=== PATIENT | male | born 1960 | race Caucasian/White ===

== ENCOUNTER 2016-11-25 11:05 | Inpatient (IN) | payer BC ==
--- NOTE | ~2016-11-25 | DS ---
Unit #: [id number] #: [id number] Patient: EVERETT LESLIE [id number] [address] [address] [id number] I MR#: [id number] NAME: EVERETT LESLIE ROOM: 549 Age: 55 Sex: M Admission Date: 11/25/2016 : 1960 Discharge Date: 11/27/2016 Attending Physician: Angelic Williamson M.D. Primary Care Physician: Justin Anaya M.D. DISCHARGE SUMMARY ADDENDUM The patient was not discharged on November 26 because nephrology wanted to monitor one more day of his sodium. Currently, his sodium is 131. The patient was given 1200 mL fluid restriction and 3 g of salt during the hospitalization course. The patient will be discharged on sodium 1 g three times daily and fluid restriction of 1200 mL at home also. Discussed with nephrology. Okay to discharge patient home. Hyponatremia is mostly secondary to alcohol. Also, could be from SIADH. Follow with family physician in one week tomcharity. BMP in one week time. Follow with PCP with results. Dictated by... Danitza Case/ayde TD: 11/27/2016 15:20 JOB #: [id number] DISCHARGE SUMMARY Page 1 of 1 X Angelic Williamson MD X DISCHARGE SUMMARY
--- NOTE | ~2016-11-25 | DS ---
Unit #: [id number] #: [id number] Patient: EVERETT LESLIE [id number] [address] [address] [id number] I MR#: [id number] NAME: EVERETT LESLIE ROOM: 549 Age: 55 Sex: M Admission Date: 11/25/2016 : 1960 Discharge Date: Attending Physician: Margarita Mosqueda M.D. Primary Care Physician: Justin Anaya M.D. DISCHARGE SUMMARY DISCHARGE DIAGNOSES 1. Hypernatremia secondary to alcohol abuse. 2. Alcohol dependence with mild delirium tremens. 3. Generalized weakness. 4. Transaminitis from alcohol. 5. Diabetes mellitus type 2, uncontrolled. 6. Hypertension, uncontrolled. 7. Hyperlipidemia. 8. History of pancreatitis. 9. Gastroesophageal reflux disease. 10. Smoking. CONSULTATION Dr. Clarke. PROCEDURES None. LAB DATA Glucose 218, TSH 3.66, creatinine 0.7, sodium 127, WBC 6.5, hemoglobin 14.6, platelets 219. Chest x-ray negative. ALLERGIES None. DISCHARGE MEDICATIONS 1. Neurontin 600 three times daily. 2. Metformin 500 p.o. b.i.d. 3. Librium 25 mg p.o. daily. 4. Norvasc 5 mg p.o. b.i.d. 5. Coreg 6.25 p.o. b.i.d. 6. Lipitor 10 daily. 7. NovoLog 15 units in the morning, 10 units in the afternoon and 15 units at bedtime. 8. Levemir 60 units at bedtime. 9. Fiber, one tablet daily. 10. Folic acid 1 mg daily. 11. Thiamine 100 daily. 12. Pentoxifylline 400 p.o. three times daily. HOSPITAL COURSE 55-year-old admitted because of low sodium. Unit #: [id number] #: [id number] Patient: EVERETT LESLIE Hyponatremia secondary to alcohol abuse: The patient was seen by Dr. Clarke. Currently, sodium is 127. If Dr. Clarke is okay, patient will be discharged. Recommendations as per him. Alcohol dependency with mild delirium tremens: Patient received alcohol withdrawal protocol with Librium. I gave prescription for Librium. Diabetes mellitus type 2, uncontrolled: Continue with Levemir. Hypertension, uncontrolled: I added Norvasc 5 mg XR to make it 5 mg p.o. b.i.d. The patient will be discharged home if okay with Dr. Clarke. Follow with primary physician in one week time. Dictated by... Danitza Case/ayde TD: 11/26/2016 11:22 JOB #: [id number] DISCHARGE SUMMARY Page 1 of 1 X Angelic Williamson MD X DISCHARGE SUMMARY
--- NOTE | ~2016-11-25 | CR63 ---
[facility] A Service of [facility] RADIOLOGY TEXT RESULTS PATIENT: EVERETT LESLIE LOCATION: [facility] [id number] : [birth year] UNIT #: [id number] AGE: [address]: Margarita Mosqueda MD SEX: M ORDER DR: [id number] [facility] [address] [facility]. [place], [place] [address] [id number] I MR#: [id number] Acc #: [id number] NAME: EVERETT LESLIE : 1960 SEX: M STUDY DATE/TIME: 11/25/2016 16:46 UNIT: [facility] ROOM: [facility] STUDY DESCRIPTION: CR Chest 2 View Attending Physician: Margarita Mosqueda M.D. Ordering Physician: Margarita Mosqueda M.D. Primary Care Physician: Justin Anaya M.D. MEDICAL IMAGING REPORT This report is preliminary unless electronic signature is present EXAM PA and lateral chest HISTORY Cough for 1 week. FINDINGS 2 views of the chest demonstrate the cardiac size and pulmonary vascularity are normal. No infiltrates or effusions. Small calcified hilar nodes. IMPRESSION No acute findings. No active disease in the lungs. Dictated by... Sukhdeep Deras M.D. THIS IS AN ELECTRONICALLY VERIFIED REPORT Sukhdeep Deras M.D. at 11/25/2016 11:11 PM DFL/pcl TD: 11/25/2016 21:53 JOB #: [id number] MEDICAL IMAGING REPORT Page 1 of 1 COPY
--- NOTE | ~2016-11-25 | CO ---
Unit #: [id number] #: [id number] Patient: EVERETT NUÑZE [id number] [address] [address] [id number] I MR#: [id number] NAME: EVERETT NUÑEZ ROOM: 549 Age: 55 Sex: M Admission Date: 11/25/2016 : 1960 Attending Physician: Angelic Williamson M.D. Primary Care Physician: Justin Anaya M.D. Consultation Date: 11/25/2016 CONSULTATION REPORT REASON FOR CONSULTATION Low sodium. Thank you very much for asking me to see this patient in consultation. HISTORY OF PRESENT ILLNESS Mr. Nuñez is a 55-year-old male with a history of EtOH abuse, history of diabetes mellitus type 2 for about 7 to 8 years, history of hypertension, who presented to the hospital after feeling weak and tired. He had blood work done in his primary office on 11/19/2016 showed sodium of 124. He was instructed to go the emergency room which he did. He states he has been feeling weak for several weeks or more. He continues to drink a lot of alcohol. He tells me at least 12 beers per day; although, he says he is eating some. He denies any chest pain or shortness of breath. He denies any nausea, vomiting, or diarrhea. He denies any other major problems, just severe weakness, fatigue, and just stressed all the time. He was noted in the emergency room here to have a sodium of 120 at 11:25 a.m. PAST MEDICAL HISTORY History of ETOH abuse, history of diabetes mellitus type 2, history of hypertension, hyperlipidemia, history of pancreatitis in the past, history of gastroesophageal reflux disease, history of status post left hip in 2007, status post cholecystectomy, status post appendectomy. SOCIAL HISTORY No smoking. Positive for snuff. Positive for ETOH. ALLERGIES No known drug allergies. MEDICATIONS At home include gabapentin, Trental, Glucophage, Norvasc, Lipitor, Coreg, insulin. REVIEW OF SYSTEMS As mentioned in the HPI. Denies any severe headaches, dizziness, visual problems, sinus problems. No cough or hemoptysis. No neck pain or neck stiffness. No chest pain, chest tightness, or palpitations. No shortness of breath. Again, no abdominal pain. No urinary symptoms. No significant swelling. No recent seizures or strokes, or skin rashes. FAMILY HISTORY Noncontributory. Unit #: [id number] #: [id number] Patient: EVERETT NUÑEZ PHYSICAL EXAMINATION VITAL SIGNS: Temperature is 97.9, pulse 79, blood pressure 160s to 170s over 90 to 100. HEENT: Normocephalic and atraumatic. Pupils are equal, round, and reactive to light. Extraocular muscles are intact. Hearing appears normal. Mouth clear. No erythema. No exudate. NECK: Supple. No JVD. CARDIAC: Regular rhythm without a rub. No S3 or S4. LUNGS: Fairly clear bilaterally. No wheezes, rhonchi, or rales. ABDOMEN: Bowel sounds positive. Nontender, soft. EXTREMITIES: He has some very trace lower extremity swelling. His pulses are intact in lower extremities. JOINTS: No joint pain or joint swelling. SKIN: His face is red. He has otherwise no acute rashes. NEUROLOGIC: Appears to be intact. Motor sensory grossly. : Deferred. DIAGNOSTIC STUDIES LABORATORY RESULTS: Showed a sodium of 120, potassium 4.1, chloride is 86, bicarb is 22, BUN and creatinine of 7 and 0.5 with a glucose of 152, calcium is 8.5, albumin is 4.1, AST is 47, ALT is 44, bilirubin is normal. CPK is 223. Hemoglobin 13.7, white count 8100, platelets 224,000. UA shows specific gravity of 1.005. No protein, no rbc's, no wbc's, no ketones. Repeat sodium which just came back from 4:00 p.m. showed a sodium up to 128, potassium 3.9, magnesium is 1.9. ASSESSMENT AND PLAN 1. Hyponatremia. This is a gentleman with low sodium probably related to alcohol use; although, with albumin of 4.1, I doubt if he has beer potomania, may just be due to increased fluid intake versus other. We will check urine sodium, urine osmolarity. We will check a TSH and a cortisol level in the morning. Due to sodium went from 120 to 128 in a little over 5 hours, I am going to go ahead and put him on D5W at 75 mL/h, start as soon as possible. Recheck a BMP at 9:00 p.m. and determine what fluid rate. We will follow his I's and O's. Depending on what his urine shows and his sodium improves, depending on what further workup and treatment. 2. ETOH abuse. 3. History of pancreatitis. We will check amylase and lipase. 4. History of diabetes. 5. History of hypertension. Dictated by..Danitza Grove/jun TD: 11/26/2016 12:36 JOB #: [id number] Unit #: [id number] #: [id number] Patient: EVERETT NUÑEZ CONSULTATION REPORT Page 1 of 1 X Rajinder Clarke MD X CONSULTATION REPORT
--- NOTE | ~2016-11-25 | HP ---
Unit #: [id number] #: [id number] Patient: EVERETT LESLIE [id number] [address] [address] [id number] MR#: [id number] NAME: EVERETT LESLIE ROOM: Age: 55 Sex: M Admission Date: 11/25/2016 : 1960 Attending Physician: Karlos Holman M.D. Primary Care Physician: Justin Anaya M.D. HISTORY AND PHYSICAL CHIEF COMPLAINT Abnormal labs. HISTORY OF PRESENT ILLNESS The patient is a 55-year-old male with a past medical history of alcohol abuse, diabetes, hypertension, hyperlipidemia, pancreatitis and gastroesophageal reflux disease. The patient presented to the emergency department for evaluation of the above. The patient states that he has been feeling generally weak for about the past week. He apparently saw Dr. De La Cruz last week regarding diabetes. Labs were drawn and he was told that his sodium was low. Repeat labs were drawn on 11/23/2016 according to the patient and he was called and told to go to the emergency department regarding low sodium. He states that last night he got an [id number] "salt tablet." He took a dose last night and a dose this morning. He states that he has been feeling generally weak. He has not had any falls. He has had frequent urination. He denies any fever. No cough or cold symptoms. No chest pain. No trouble breathing. No vomiting or diarrhea. Of note, he is a daily drinker. He drinks about a 12-pack daily. His last drink was three days ago. In the emergency department sodium is 120. He was given one liter of normal saline. He is being admitted to [facility] for evaluation and further treatment. PAST MEDICAL HISTORY 1. Admission to [facility] 03/03/2008 through 03/06/2008 for left total hip arthroplasty. 2. Diabetes, followed by Dr. De La Cruz. 3. Hypertension. 4. Hyperlipidemia. 5. Pancreatitis. 6. Gastroesophageal reflux disease. PAST SURGICAL HISTORY 1. Cholecystectomy. 2. Appendectomy. 3. Left hip replacement. 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 He is a smoker. He is a daily drinker. He drinks a 12-pack daily. He states that his last drink was three to four days ago. Unit #: [id number] #: [id number] Patient: EVERETT LESLIE FAMILY HISTORY Notable for his dad having diabetes. ALLERGIES No known drug allergies. HOME MEDICATIONS 1. Gabapentin 600 mg t.i.d. 2. Pentoxifylline 400 mg t.i.d. 3. Glucophage 500 mg b.i.d. 4. Norvasc 5 mg daily. 5. Lipitor 10 mg daily. 6. Coreg 6.25 mg b.i.d. 7. NovoLog 15 units in the morning, 10 units in the afternoon, 15 units in the p.m. 8. Levemir 60 units at bedtime. 9. Methylcellulose daily. REVIEW OF SYSTEMS A complete review of systems is negative except as indicated in the history of present illness. The patient says his blood sugars have been in the 150 to 200 range. The patient denies ever being told that his sodium was low in the past. PHYSICAL EXAMINATION GENERAL: The patient is a male who is awake and alert, in no acute distress. VITALS: Temperature 97.5, pulse 79, respiratory rate 16, blood pressure 174/90, oxygen saturation 97% on room air. HEENT: The head is atraumatic. Mucous membranes are moist. NECK: Supple. Trachea midline. LUNGS: Clear to auscultation bilaterally with no increased work of breathing. HEART: Regular rate and rhythm. ABDOMEN: Soft and nontender with bowel sounds present in all four quadrants. EXTREMITIES: Nontender with no pedal edema. NEUROLOGIC: The patient is awake and alert. He follows commands. PSYCHIATRIC: Mood and affect are normal. The patient is cooperative. SKIN: Skin of examined areas is warm and dry. DIAGNOSTIC STUDIES LABORATORY: CBC notable for MCV of 81.1. Urinalysis essentially normal. CMP notable for sodium of 120, chloride 86, glucose 152, BUN 7, creatinine 0.5, AST 47, ALT 44. CARDIOVASCULAR: EKG shows normal sinus rhythm with a rate of 86 beats per minute. ASSESSMENT The patient is a 55-year-old male with 1. General weakness. 2. Hyponatremia. The patient's sodium has previously been normal, although comparison is from 2007. I suspect that this is related to beer proteinemia as the patient drinks a 12-pack daily. 3. Transaminitis. Likely secondary to alcohol abuse. 4. Alcohol abuse with last drink three days ago. 5. Diabetes. Unit #: [id number] #: [id number] Patient: EVERETT LESLIE 6. Hypertension. 7. Hyperlipidemia. 8. History of pancreatitis. 9. Gastroesophageal reflux disease. 10. Tobacco abuse. PLAN 1. Admit to intermediate level. 2. Healthy heart, consistent carb diet if passes bedside swallow. 3. Two liter fluid restriction. 4. Fall precautions. 5. Physical therapy and occupational therapy to evaluate and treat. 6. Urine sodium and osmolality. 7. Serum osmolality. 8. Q.4 h. BMP. 9. Consult Dr. Ornelas regarding hyponatremia. 10. Chest x-ray for further evaluation of hyponatremia. 11. Thiamine, multivitamin, folic acid daily with first dose now. 12. Librium 25 mg p.o. q.6 h. with first dose now. 13. CIWA scoring with p.r.n. Ativan. 14. manager mba, social work consult regarding alcohol abuse. 15. Check urinalysis with culture and sensitivity. 16. Hemoglobin A1c. 17. Low-dose sliding scale with Accu-Cheks. 18. Serial cardiac enzymes. 19. EKG if not done. 20. Check magnesium level. 21. Repeat labs in the morning. 22. SCDs for DVT prophylaxis. 23. Additional workup and consultants based on the above. Dictated by Margarita Mosqueda M.D. Mario TD: 11/25/2016 15:39 JOB #: [id number] HISTORY AND PHYSICAL Page 1 of 1 X Margarita Mosqueda MD HISTORY AND PHYSICAL
--- NOTE | ~2016-11-25 | EKG ---
PATIENT: EVERETT LESLIE UNIT #: [id number] Ventricular Rate: 88 BPM Atrial Rate: 88 BPM P-R Interval: 168 ms QRS Duration: 120 ms Q-T Interval: 384 ms QTC Calculation(Bezet): 464 ms P Franklin: 75 degrees Calculated R Franklin: -58 degrees Calculated T Franklin: 48 degrees Diagnosis Line: Normal sinus rhythm Diagnosis Line: Left anterior fascicular block Diagnosis Line: Inferior infarct , age undetermined Diagnosis Line: Abnormal ECG Diagnosis Line: No previous ECGs available Diagnosis Line: Confirmed by BRANDON ILSA MD ([id number]) on 11/27/2016 Diagnosis Line: 4:29:31 PM INTERPRETING MD: SLOAN ALFRED
[~2016-11-25 11:05] MED LIST: COUMADIN PO; LOPRESSOR PO; LORTAB 10/500 T1 TAB PO; NORCO 5/325 TAB1 TAB PO; PREVACID PO; VICODIN 5/500 T1 TAB PO; ZOCOR PO
[2016-11-25 11:43] LABS: BASOPHIL# 0.1 X10e3 (0-0.3); BASOPHIL% 0.8 % (0-2.5); EOSINOPHIL# 1.3 X10e3 (0-0.7); EOSINOPHIL% 15.7 % (0.0-7.0); HEMATOCRIT 43.2 % (38.0-50.0); HEMOGLOBIN 13.7 gm/dL (13.0-16.0); LYMPHOCYTE# 1.9 X10e3 (1.0-3.5); LYMPHOCYTE% 23.1 % (17.0-45.0); MEAN CELL VOLUME 81.1 FL (83-96); MEAN CORPUSCULAR HEMOGLOBIN 25.8 PG (28-34); MEAN CORPUSCULAR HGB CONC 31.8 g/dL (30-36); MEAN PLATELET VOLUME 7.3 FL (6.5-11.5); MONOCYTE# 0.8 X10e3 (0-1.0); MONOCYTE% 10.5 % (3.0-12.0); NEUTROPHIL% 49.9 % (40-75); PLATELET COUNT 224 X10e3 (140-420); RED BLOOD COUNT 5.33 X10e (3.90-5.60); RED CELL DISTRIBUTION WIDTH 14.5 % (11.0-15.5); WHITE BLOOD COUNT 8.1 X10e3 (4.0-10.5)
[2016-11-25 11:49] LABS: DIFF IND NO
[2016-11-25 11:49] LABS: URINE SOURCE CLEAN CATCH
[2016-11-25 11:56] LABS: URINE APPEARANCE CLEAR; URINE BILIRUBIN NEG (NEG); URINE BLOOD NEG (NEG); URINE COLOR YELLOW; URINE GLUCOSE NEG (NEG); URINE KETONE NEG (NEG); URINE LEUKOCYTE ESTERASE NEG (NEG); URINE NITRATE NEG (NEG); URINE PH 5.5 (5-8); URINE PROTEIN NEG (NEG); URINE SPECIFIC GRAVITY 1.005 (1.003-1.035); URINE UROBILINOGEN 0.2 MG/DL (NEG)
[2016-11-25 12:03] LABS: CULTURE INDICATED? NO
[2016-11-25 12:45] LABS: ALBUMIN SERUM 4.1 g/dL (3.5-5.0); BILIRUBIN, DIRECT 0.1 mg/dL (0.0-0.2); BILIRUBIN,INDIRECT 0.6 mg/dL (0.0-0.9); BILIRUBIN,TOTAL 0.7 mg/dL (0.2-2.0); CALCIUM SERUM 8.5 mg/dL (8.4-10.2); CREATININE SERUM 0.5 mg/dL (0.6-1.4); POTASSIUM 4.1 mmol/L (3.5-5.1); PROTEIN TOTAL SERUM 6.9 g/dL (6.0-8.3)
[2016-11-25] MEDS ORDERED: PATIENT'S PHARMACY (13:57)
[2016-11-25] MEDS ORDERED: GABAPENTIN600 MG PO (13:58)
[2016-11-25] MEDS ORDERED: PENTOXIFYLLINE PO (14:01)
[2016-11-25] MEDS ORDERED: NORVASC PO (14:01)
[2016-11-25] MEDS ORDERED: METFORMIN PO (14:01)
[2016-11-25] MEDS ORDERED: LIPITOR PO (14:02)
[2016-11-25] MEDS ORDERED: COREG6.25 MG PO (14:02)
[2016-11-25] MEDS ORDERED: LEVEMIR FL100 UNIT/1 SUBQ (14:03)
[2016-11-25] MEDS ORDERED: NOVOLOG FL100 UNIT/1 (14:03)
[2016-11-25] MEDS ORDERED: FIBER500 MG PO (14:04)
[2016-11-25 16:25] LABS: BASOPHIL# 0.1 X10e3 (0-0.3); BASOPHIL% 0.7 % (0-2.5); EOSINOPHIL# 1.2 X10e3 (0-0.7); EOSINOPHIL% 16.7 % (0.0-7.0); HEMATOCRIT 44.9 % (38.0-50.0); HEMOGLOBIN 14.2 gm/dL (13.0-16.0); LYMPHOCYTE# 1.6 X10e3 (1.0-3.5); LYMPHOCYTE% 22.9 % (17.0-45.0); MEAN CELL VOLUME 80.8 FL (83-96); MEAN CORPUSCULAR HEMOGLOBIN 25.7 PG (28-34); MEAN CORPUSCULAR HGB CONC 31.7 g/dL (30-36); MEAN PLATELET VOLUME 7.3 FL (6.5-11.5); MONOCYTE# 0.5 X10e3 (0-1.0); MONOCYTE% 7.9 % (3.0-12.0); NEUTROPHIL# 3.6 X10e3 (1.5-7.1); NEUTROPHIL% 51.8 % (40-75); PLATELET COUNT 222 X10e3 (140-420); RED BLOOD COUNT 5.55 X10e (3.90-5.60); RED CELL DISTRIBUTION WIDTH 14.8 % (11.0-15.5); WHITE BLOOD COUNT 6.9 X10e3 (4.0-10.5)
[2016-11-25 16:46] LABS: DIFF IND NO
[2016-11-25 16:57] LABS: ALBUMIN SERUM 4.1 g/dL (3.5-5.0); BILIRUBIN,TOTAL 0.7 mg/dL (0.2-2.0); CALCIUM SERUM 8.4 mg/dL (8.4-10.2); CREATININE SERUM 0.6 mg/dL (0.6-1.4); GLOM FILT RATE Estimated 113.2 mL/min (>60); MAGNESIUM 1.9 mg/dL (1.6-3.0); POTASSIUM 3.9 mmol/L (3.5-5.1)
[2016-11-25 17:17] LABS: %MB 3.7 % (0.0-4.0); MB 8.3 ng/ml
[2016-11-25 20:39] LABS: CREATININE SERUM 0.6 mg/dL (0.6-1.4); GLOM FILT RATE Estimated 113.2 mL/min (>60); POTASSIUM 4.3 mmol/L (3.5-5.1)
[2016-11-25 21:43] LABS: BUN/CREATININE RATIO 11.66; CALCIUM SERUM 8.7 mg/dL (8.4-10.2); CREATININE SERUM 0.6 mg/dL (0.6-1.4); GLOM FILT RATE Estimated 113.2 mL/min (>60); POTASSIUM 4.2 mmol/L (3.5-5.1)
[2016-11-25 21:46] LABS: %MB 3.9 % (0.0-4.0)
[2016-11-26 05:32] LABS: HEMATOCRIT 45.4 % (38.0-50.0); HEMOGLOBIN 14.6 gm/dL (13.0-16.0); MEAN CELL VOLUME 81.6 FL (83-96); MEAN CORPUSCULAR HEMOGLOBIN 26.2 PG (28-34); MEAN CORPUSCULAR HGB CONC 32.1 g/dL (30-36); MEAN PLATELET VOLUME 7.8 FL (6.5-11.5); RED BLOOD COUNT 5.57 X10e (3.90-5.60); WHITE BLOOD COUNT 6.5 X10e3 (4.0-10.5)
[2016-11-26 06:26] LABS: ALBUMIN SERUM 4.1 g/dL (3.5-5.0); BILIRUBIN,TOTAL 0.8 mg/dL (0.2-2.0); BUN/CREATININE RATIO 12.85; CALCIUM SERUM 8.9 mg/dL (8.4-10.2); CREATININE SERUM 0.7 mg/dL (0.6-1.4); GLOM FILT RATE Estimated 106.3 mL/min (>60); MAGNESIUM 2.2 mg/dL (1.6-3.0); POTASSIUM 4.3 mmol/L (3.5-5.1); PROTEIN TOTAL SERUM 6.8 g/dL (6.0-8.3)
[2016-11-26 06:41] LABS: THYROID STIMULATING HORMONE 3.66 uIU/ml (0.34-5.60)
[2016-11-26 06:45] LABS: %MB 3.5 % (0.0-4.0); MB 5.4 ng/ml
[2016-11-26 13:23] LABS: SODIUM URINE RANDOM 12 mmol/L
[2016-11-26 13:32] LABS: OSMOLALITY,URINE 166 mOsmo/kg (250-900)
[2016-11-26 18:04] LABS: CALCIUM SERUM 8.8 mg/dL (8.4-10.2); CREATININE SERUM 0.8 mg/dL (0.6-1.4); GLOM FILT RATE Estimated 100.6 mL/min (>60); POTASSIUM 4.1 mmol/L (3.5-5.1)
[2016-11-27 06:59] LABS: BUN/CREATININE RATIO 13.75; CREATININE SERUM 0.8 mg/dL (0.6-1.4); GLOM FILT RATE Estimated 100.6 mL/min (>60); POTASSIUM 3.9 mmol/L (3.5-5.1)
[2016-11-27] MEDS ORDERED: THERAPEUTIC VI1 EACH PO (13:54)
[2016-11-27] MEDS ORDERED: FOLIC ACID1 MG PO (13:54)
[2016-11-27] MEDS ORDERED: THIAMINE HCL100 M1 PO (13:55)
[2016-11-27] MEDS ORDERED: SODIUM CHLORIDE1 GM PO (13:56)
[2016-11-27] MEDS ORDERED: LIBRIUM25 M1 PO (13:57)
== END 2016-11-27 14:55 | disposition home or self-care (01) | DRG 641 ==
LOC: CED 11:05 → CEDOF 15:15 → CED 15:28 → CEDOF 15:28 → C5B 17:59 → CEDOF 17:59 → C5B 11-27 05:41
PROVIDERS: Emergency Medicine; Family Medicine; Internal Medicine Nephrology
DX: E87.1 Hypo-osmolality and hyponatremia (principal); F10.231 Alcohol dependence with withdrawal delirium; R53.1 Weakness; R74.0 Nonspecific elevation of levels of transaminase and lactic acid dehydrogenase [LDH]; E11.65 Type 2 diabetes mellitus with hyperglycemia; Z79.4 Long term (current) use of insulin; I10 Essential (primary) hypertension; E78.5 Hyperlipidemia, unspecified; K21.9 Gastro-esophageal reflux disease without esophagitis; F17.210 Nicotine dependence, cigarettes, uncomplicated; Z90.49 Acquired absence of other specified parts of digestive tract; Z96.642 Presence of left artificial hip joint; Z83.3 Family history of diabetes mellitus
CPT/HCPCS: 36415; 71020; 80048; 80053; 80076; 81003; 82150; 82533; 82550; 82553; 82947; 83036; 83690; 83735; 83930; 83935; 84100; 84300; 84443; 84484; 85025; 85027; 87086; 93005; 96360; 99285; J1815